=== PATIENT | female | born 1960 | race Two or more races ===

== ENCOUNTER → 2024-09-26 | Day surgery (SDC) | payer OTHER ==
[2024-09-22 11:15] LABS: Urine Bacteria None Seen /hpf (None Seen)
[2024-09-22 11:42] LABS: Basophils # (auto) 0 10 ^3/uL (0-0.2); Basophils % (auto) 0.5 % (0.0-2.0); Eosinophils # (auto) 0.1 10 ^3/uL (0-0.8); Hematocrit 47.4 % (36.0-46.0); Hemoglobin 16.2 g/dL (12.2-16.2); Lymphocytes # (auto) 2.7 10 ^3/uL (0.4-5.4); Lymphocytes % (auto) 36.5 % (10.0-50.0); Mean Corpuscular Hemoglobin 30.6 pg (28.0-32.0); Mean Corpuscular Hgb Conc. 34.2 g/dL (32.0-36.0); Mean Corpuscular Volume 89.6 fL (80.0-100.0); Monocytes # (auto) 0.5 10 ^3/uL (0-1.3); Monocytes % (auto) 6.8 % (0.0-12.0); Neutrophils % (auto) 54.2 % (37.0-80.0); Platelet Count (auto) 240 10^3/uL (140-450); Red Cell Distribution Width 13.4 % (11.8-14.3); White Blood Cell 7.4 10^3/uL (4.4-10.8)
[2024-09-22 11:47] LABS: Urine Blood Negative /uL (Negative); Urine Clarity Clear (Clear); Urine Color Colorless (Yellow); Urine Protein, UAD Negative (Negative); Urine Specific Gravity 1.005 (1.001-1.035); Urine Squamous Epithelial Cell None Seen /hpf (<5); Urine Urobilinogen Normal (Negative); Urine WBC 1 /HPF (0-5); Urine pH 6.5 (5.0-9.0)
[2024-09-22 11:58] LABS: INR 0.98 (0.9-1.15); Partial Thromboplastin Time 28.5 SEC (24.5-34.5); Prothrombin Time 10.4 sec (9.3-11.8)
[2024-09-22 12:25] LABS: Anion Gap 10 (5-15); BUN/Creatinine Ratio 8.4 (10.0-20.0); Calcium 10.1 mg/dL (8.7-10.4); Carbon Dioxide 26 mmol/L (20-31); Chloride 107 mmol/L (98-107); Glucose 97 mg/dL (74-106); Potassium 3.6 mmol/L (3.5-5.1); Sodium 143 mmol/L (136-145); Total Protein 7.7 g/dL (5.7-8.2)
[2024-09-22 12:26] LABS: Bilirubin, Total 0.8 mg/dL (0.2-1.0)
[2024-09-22 12:28] LABS: Alanine Aminotransferase 66 U/L (7-40); Alkaline Phosphatase 122 U/L (46-116); Aspartate Aminotransferase 45 U/L (13-40); Blood Urea Nitrogen 7 mg/dL (9-23)
[~2024-09-26] VITALS: Ht 149.9 cm; Wt 70.8 kg
[~2024-09-26] MED LIST: DICY20TA PO; DexAMETHasone SOD PHOS 10MG/1ML VIAL INJ ONE; KETAMINE 50mg/ML 1ml syringe ONE; METO25TA93 PO; MIDAZOLAM HCL 2MG/2ML 2ml VIAL (1mg/ml) ONE; ONDANSETRON HCL 4 MG/2 ML VIAL ONE; PROPOFOL 10 MG/ML 20 ML IV ONE; fentaNYL CITRATE 100 MCG/2 ML VL ONE
[2024-09-26 15:30] VITALS: TEMP 97.6; O2SAT 100
--- NOTE | 2024-09-26 15:37 | DVHOP2 ---
Operative Report DATE OF OPERATION: 09/26/24 PROCEDURE: Upper Endoscopy with biopsy. PREOPERATIVE INDICATION: The patient is a 64 -year-old female undergoing endoscopy for chronic GERD and dyspepsia POSTOPERATIVE DIAGNOSES: 1. 0.5-1 cm sliding-type hiatal hernia with slightly irregular squamocolumnar junction and some columnar rest in the proximal esophagus below the upper esophageal sphincter 2. Minimal gastritis and moderate duodenitis of the duodenal bulb with multiple duodenal bulb ulcers and erosions PROCEDURE PERFORMED BY: Christopher Bright GI NURSE: Matias SCOPE: Olympus videoendoscope. ASA CLASS: 2 PREOPERATIVE MEDICATIONS: Mac Dr. Lester chavarria PROCEDURE IN DETAIL: After obtaining an informed consent, the patient was placed on left lateral decubitus position. The patient was then sedated with the above medications. A bite block was placed between her teeth. The endoscope was then passed through the oropharynx, into the esophagus, and through the stomach and pylorus up to the second and third part of the duodenum. The endoscope was then withdrawn. The 2nd and 3rd part of the duodenal were normal. Duodenal bulb showed moderate duodenitis with superficial erosions and tiny superficial ulcers The pre-pyloric area antrum and body showed minimal gastritis. On retroflexion the fundus cardia and angularis were normal. The endoscope was then withdrawn into the distal esophagus. Patient had a 0.5 cm sliding-type hiatal hernia with slightly irregular squamocolumnar junction There was no significant erosive esophagitis with there was a 2 cm inlet patch or columnar rest in the proximal esophagus under the upper esophageal sphincter area suggestive of chronic reflux The patient tolerated the procedure well without difficulty. COMPLICATIONS : None SPECIMENS: Duodenal biopsies Gastric biopsy DISPOSITION: Stable D/C to home PLAN: 1. Await for biopsy result 2. Will place pt on Protonix 40 mg bid 3. Carafate 1 g p.o. twice a day 4. DC aspirin NSAIDs smoking alcohol 5. Resume GI soft diet advance as tolerated 6. Outpatient follow up with me in 4-6 weeks to review results and discuss further management CHRISTOPHER BRIGHT MD Sep 26, 2024 15:37
--- NOTE | 2024-09-26 15:42 | DVHOP2 ---
Operative Report DATE OF OPERATION: 09/26/24 PROCEDURE: Colonoscopy with cold biopsy polypectomy PREOPERATIVE INDICATION: The patient is a 64 -year-old female undergoing colonoscopy for colon cancer screening POSTOPERATIVE DIAGNOSES: 1. There were two 1-2 mm benign-appearing rectosigmoid polyps that were seen and removed completely via cold biopsy forceps 2. [id number] scattered diverticular disease most prominent in the sigmoid 3. Trace internal hemorrhoids otherwise normal examination up to the cecum and terminal ileum PROCEDURE PERFORMED BY: Christopher Bright M.D. SCOPE: Olympus videocolonoscope. ASA CLASS: 2 PREOPERATIVE MEDICATIONS: Dr. Lester Parker PROCEDURE IN DETAIL: After obtaining an informed consent, the patient was placed on left lateral decubitus position. She was then sedated with the above medications. A rectal examination was performed that was normal. The colonoscope was then passed through the anus into the rectosigmoid and through the descending, transverse, and ascending colon up to the cecum with visualization of the appendiceal orifice, base of the cecum and the ileocecal valve. The colonoscope was then withdrawn. The distal 3-5 cm of the terminal ileum were normal No masses or colitis was noted. Patient had mild scattered diverticular disease more prominent in the sigmoid colon Patient had two diminutive benign-appearing rectosigmoid polyps that were seen and removed by cold biopsy forceps On retroflexion and straight on view she had trace internal hemorrhoids The patient tolerated the procedure well without difficulty. WITHDRAWAL TIME: 7 minute QUALITY OF THE PREP: Dyer Bowel Prep score: 9. COMPLICATIONS : None SPECIMENS: Rectosigmoid polyp DISPOSITION: Stable D/C to home PLAN: 1. Repeat colonoscopy based on biopsy result likely in 5-7 years 2. Resume GI soft diet advance as tolerated 3. Increase fluid and fiber intake 4. Outpatient follow up with me in 4-6 weeks to review results and discuss further management CHRISTOPHER BRIGHT MD Sep 26, 2024 15:42
[2024-09-26 16:15] VITALS: BP 149/71; PULSE 70; RESP 12; O2SAT 97
[2024-09-26] MEDS: ONDANSETRON HCL 4 MG/2 ML VIAL IV ONE (16:43)
== END | disposition home or self-care (01) ==
LOC: GI 11:28
PROVIDERS: ATTEND Internal Medicine Gastroenterology
DX: Z12.11 Encounter for screening for malignant neoplasm of colon (principal); K63.5 Polyp of colon; K57.30 Diverticulosis of large intestine without perforation or abscess without bleeding; K29.50 Unspecified chronic gastritis without bleeding; K21.9 Gastro-esophageal reflux disease without esophagitis; K44.9 Diaphragmatic hernia without obstruction or gangrene; K29.70 Gastritis, unspecified, without bleeding; K29.80 Duodenitis without bleeding; K26.9 Duodenal ulcer, unspecified as acute or chronic, without hemorrhage or perforation; K22.10 Ulcer of esophagus without bleeding; R12 Heartburn; I10 Essential (primary) hypertension; Z86.2 Personal history of diseases of the blood and blood-forming organs and certain disorders involving the immune mechanism; Z86.0100 Personal history of colon polyps, unspecified
CPT/HCPCS: 36415; 43239; 45380; 80053; 81001; 85025; 85610; 85730; 88305; 88312; 88342; J1100; J2250; J2405; J2704; J3010; J7030

== ENCOUNTER → 2024-11-06 | Outpatient (CLI) | payer OTHER ==
[~2024-11-06] MED LIST changes: -DexAMETHasone SOD PHOS 10MG/1ML VIAL INJ ONE; -KETAMINE 50mg/ML 1ml syringe ONE; -MIDAZOLAM HCL 2MG/2ML 2ml VIAL (1mg/ml) ONE; -ONDANSETRON HCL 4 MG/2 ML VIAL ONE; -PROPOFOL 10 MG/ML 20 ML IV ONE; -fentaNYL CITRATE 100 MCG/2 ML VL ONE
[2024-11-06 10:09] LABS: Urine Bacteria None Seen /hpf (None Seen)
[2024-11-06 10:10] LABS: Basophils # (auto) 0 10 ^3/uL (0-0.2); Basophils % (auto) 0.6 % (0.0-2.0); Eosinophils # (auto) 0.1 10 ^3/uL (0-0.8); Eosinophils % (auto) 2.6 % (0.0-7.0); Hematocrit 46.7 % (36.0-46.0); Hemoglobin 15.8 g/dL (12.2-16.2); Lymphocytes # (auto) 2.1 10 ^3/uL (0.4-5.4); Lymphocytes % (auto) 38.2 % (10.0-50.0); Mean Corpuscular Hemoglobin 29.9 pg (28.0-32.0); Mean Corpuscular Hgb Conc. 33.9 g/dL (32.0-36.0); Mean Corpuscular Volume 88.4 fL (80.0-100.0); Monocytes # (auto) 0.4 10 ^3/uL (0-1.3); Monocytes % (auto) 6.4 % (0.0-12.0); Neutrophils # (auto) 2.9 10 ^3/uL (1.6-8.6); Neutrophils % (auto) 52.2 % (37.0-80.0); Nucleated Red Blood Cells % 0.2 %; Platelet Count (auto) 221 10^3/uL (140-450); Red Blood Cells 5.28 10^6/uL (4.0-5.20); Red Cell Distribution Width 13.4 % (11.8-14.3); White Blood Cell 5.6 10^3/uL (4.4-10.8)
[2024-11-06 10:19] LABS: Urine Blood Negative /uL (Negative); Urine Clarity Clear (Clear); Urine Color Light-Yellow (Yellow); Urine Protein, UAD Negative (Negative); Urine Specific Gravity 1.022 (1.001-1.035); Urine Squamous Epithelial Cell FEW /hpf (<5); Urine Urobilinogen Normal (Negative); Urine WBC 2 /HPF (0-5); Urine pH 6.5 (5.0-9.0)
[2024-11-06 10:28] LABS: INR 0.95 (0.9-1.15); Prothrombin Time 10.1 sec (9.3-11.8)
[2024-11-06 10:51] LABS: Albumin 4.6 g/dL (3.2-4.8); Anion Gap 11 (5-15); Aspartate Aminotransferase 28 U/L (13-40); BUN/Creatinine Ratio 15.1 (10.0-20.0); Blood Urea Nitrogen 14 mg/dL (9-23); Carbon Dioxide 25 mmol/L (20-31); Potassium 4.1 mmol/L (3.5-5.1); Sodium 145 mmol/L (136-145); Total Protein 7.1 g/dL (5.7-8.2)
[2024-11-06 10:52] LABS: Bilirubin, Total 0.5 mg/dL (0.2-1.0); Cholesterol 197 mg/dL (< 200); HDL Cholesterol 60 mg/dL (40-59)
[2024-11-06 10:55] LABS: Alanine Aminotransferase 46 U/L (7-40); Alkaline Phosphatase 120 U/L (46-116); Chloride 109 mmol/L (98-107); Glucose 107 mg/dL (74-106); LDL Cholesterol 126 mg/dL (< 100); Triglycerides 169 mg/dL (< 150)
[2024-11-06 11:09] LABS: Hepatitis B Surface Antigen Negative (Negative)
[2024-11-06 11:37] LABS: Hepatitis C Antibody Negative (Negative)
[2024-11-07 09:07] LABS: Anti-Nuclear Antibody Direct Negative (Negative)
== END | disposition home or self-care (01) ==
LOC: LAB 09:36
PROVIDERS: ATTEND Nurse Practitioner Family
DX: I10 Essential (primary) hypertension (principal); E55.9 Vitamin D deficiency, unspecified; E78.5 Hyperlipidemia, unspecified; R73.9 Hyperglycemia, unspecified; R94.5 Abnormal results of liver function studies
CPT/HCPCS: 36415; 80053; 80061; 81001; 82306; 82728; 83036; 84443; 85025; 85610; 86038; 86803; 87340; 87902